=== PATIENT | female | born 1955 | race Caucasian/White ===

== ENCOUNTER → 2020-07-23 | Outpatient (CLI) | payer MEDICARE, OTHER | LOC: KOH-I 15:46 | DX: M54.5 Low back pain (principal); M51.24 Other intervertebral disc displacement, thoracic region | CPT/HCPCS: 72148 ==

== ENCOUNTER → 2021-03-05 | Outpatient (CLI) | payer MEDICARE, OTHER ==
[2021-03-06 09:14] LABS: DHEA-SULFATE 64.4 ug/dL (20.4-186.6); PROLACTIN 16.7 ng/mL (4.8-23.3)
== END ==
LOC: LAB 08:48
PROVIDERS: Internal Medicine
DX: L68.0 Hirsutism (principal); E05.20 Thyrotoxicosis with toxic multinodular goiter without thyrotoxic crisis or storm; E34.9 Endocrine disorder, unspecified
CPT/HCPCS: 36415; 82157; 82627; 83520; 84143; 84146; 84270; 84402; 84403; 84439; 84443; 84481

== ENCOUNTER → 2021-07-02 | Outpatient (CLI) | payer MEDICARE, OTHER ==
[2021-07-02 12:37] LABS: BUN/CREATININE RATIO 20 (0-10)
[2021-07-03 11:17] LABS: ESTRADIOL 22.1 pg/mL (.); FSH 42.4 mIU/mL (.); LUTEINIZING HORMONE(LH) 28.4 mIU/mL (.)
== END ==
LOC: LAB 09:35
PROVIDERS: Internal Medicine
DX: E05.20 Thyrotoxicosis with toxic multinodular goiter without thyrotoxic crisis or storm (principal); L68.0 Hirsutism
CPT/HCPCS: 36415; 80053; 82670; 83001; 83002; 83498; 84402; 84403; 84439; 84443; 84481